=== PATIENT | male | born 1945 | race Caucasian/White ===

== ENCOUNTER → 2016-12-25 | Outpatient (CLI) | payer OTHER ==
[~2016-12-25] MED LIST: APRESOLINE10 MG; ASPIR 8181 MG PO; CENTRUM SILVER1 EAC2 PO; COLACE100 MG PO; CPAP; DITROPAN XL5 MG PO; FLOMAX0.4 MG PO; GLUCOPHAGE1000 MG PO; HYGROTON25 MG PO; KLONOPIN1 MG PO; LOPRESSOR25 MG; NITROSTAT 0.40.4 MG SL; NORCO 5-325 TA1 EACH PO; NORVASC10 MG PO; PLAVIX75 MG PO; PROTONIX40 MG PO; TRANDATE200 MG PO; TYLENOL325 MG PO; ZESTRIL40 MG PO; ZOCOR40 MG PO
== END | disposition disaster alternative care site (69) ==
LOC: GRAD 11:51
DX: N20.0 Calculus of kidney (principal); N42.9 Disorder of prostate, unspecified; R14.0 Abdominal distension (gaseous)